=== PATIENT | female | born 1995 | race African-American/Black ===

== ENCOUNTER 2019-04-23 10:58 | Emergency (ER) | payer MEDICAID ==
[~2019-04-23] VITALS: Ht 167.6 cm; Wt 58.0 kg
[2019-04-23] MEDS ORDERED: ONDANSETRON HCL 4MG/2ML INJ IV STA (11:24)
[2019-04-23] MEDS ORDERED: MORPHINE SULFATE 4 MG/ML CPJ (NOT FOR IM USE) IV STA (11:24)
[2019-04-23] MEDS ORDERED: SODIUM CHLORIDE 0.9% 1,000 ML IV ONE ×2 (11:24→14:14)
[2019-04-23 11:44] LABS: HCG SCREEN NEGATIVE
[2019-04-23 11:45] LABS: CHLORIDE 109 mEq/L (98-107); HEMATOCRIT. 40.2 % (36.0-48.0); HEMOGLOBIN. 12.9 g/dL (12.0-16.0); MEAN CORPUSCULAR HEMOGLOBIN 24.4 pg (28.0-32.0); MEAN CORPUSCULAR VOLUME 76.1 fL (81.0-99.0); MEAN PLATELET VOLUME 9.2 fl (7.4-10.4); PLATELET 313 x1000/uL (130-400); RED BLOOD CELL COUNT 5.28 mill/uL (4.2-5.4); RED CELL DISTRIBUTION WIDTH 19.8 % (11.6-14.6)
[2019-04-23 11:52] LABS: PROTHROMBIN TIME 10.3 sec (9.6-11.0)
[2019-04-23 12:06] LABS: PLATELET ESTIMATE NORMAL
[2019-04-23] MEDS ORDERED: ONDANSETRON HCL 4MG/2ML INJ IV ONE (14:15)
[2019-04-23 16:38] VITALS: BP 124/80
== END 2019-04-23 16:40 | disposition left against medical advice (07) ==
LOC: ER 10:58 → CANBEDREQ 14:18 → EDBEDREQ 14:54 → CANBEDREQ 16:38 → ER 16:40
DX: R10.0 Acute abdomen (principal); R11.2 Nausea with vomiting, unspecified
CPT/HCPCS: 36415; 74176; 80053; 83690; 84703; 85025; 85610; 96361; 96374; 96375; 96376; 99284; J2270; J2405; J7030; Z7610